=== PATIENT | female | born 1995 | race African-American/Black ===

== ENCOUNTER 2016-09-15 08:17 | Inpatient (IN) | payer BC, OTHER ==
[~2016-09-15] VITALS: Ht 160 cm; Wt 62.5 kg
[2016-09-15] VITALS (18 sets, daily range): BP systolic 112–137; BP diastolic 52–78
[2016-09-15] MEDS ORDERED: PRENATAL TABLE1 EACH PO (08:46)
[2016-09-15 10:22] LABS: EOSINOPHIL (%) 0.7 % (0-5); EOSINOPHIL COUNT 0.1 K/uL (0-0.3); HEMATOCRIT 34.4 % (36.0-46.0); IMMATURE GRANULOCYTE (%) 1.1 % (0.0-0.7); IMMATURE GRANULOCYTE COUNT 0.1 K/uL; INSTRUMENT ABS NEUTROPHIL CT 6.9 K/uL; LYMPHOCYTE COUNT 1.4 K/uL (1.0-2.8); MCH 30.1 PG (29.0-34.0); MCHC 35.8 G/DL (30.0-36.0); MCV 84.3 FL (83-99); MEAN PLAT.VOLUME 11.8 uM^3 (9.5-12.4); MONOCYTE (%) 6.1 % (3-12); MONOCYTE COUNT 0.6 K/uL (0-0.8); NEUTROPHIL (%) 76.8 % (45-76); NEUTROPHIL COUNT 6.9 K/uL (1.8-6.4); PLATELET COUNT 140 K/uL (156-360); RBC DIS.WIDTH-CV 14.6 % (11.8-14.6); RBC DIS.WIDTH-SD 44.5 % (39-53); RED BLOOD COUNT 4.08 M/uL (3.80-5.20)
[2016-09-16 05:15] LABS: EOSINOPHIL (%) 0.4 % (0-5); EOSINOPHIL COUNT 0.1 K/uL (0-0.3); HEMATOCRIT 28.5 % (36.0-46.0); IMMATURE GRANULOCYTE (%) 0.8 % (0.0-0.7); IMMATURE GRANULOCYTE COUNT 0.1 K/uL; INSTRUMENT ABS NEUTROPHIL CT 12.5 K/uL; MCH 30.7 PG (29.0-34.0); MCHC 36.1 G/DL (30.0-36.0); MCV 84.8 FL (83-99); MEAN PLAT.VOLUME 12.1 uM^3 (9.5-12.4); MONOCYTE (%) 8.1 % (3-12); MONOCYTE COUNT 1.3 K/uL (0-0.8); NEUTROPHIL (%) 78.4 % (45-76); NEUTROPHIL COUNT 12.5 K/uL (1.8-6.4); PLATELET COUNT 134 K/uL (156-360); RBC DIS.WIDTH-CV 14.5 % (11.8-14.6); RBC DIS.WIDTH-SD 45.1 % (39-53); RED BLOOD COUNT 3.36 M/uL (3.80-5.20)
[2016-09-16 08:14] VITALS: BP 116/56
[2016-09-16 14:35] VITALS: BP 128/74
[2016-09-16] MEDS ORDERED: IBUPROFEN800 MG PO (15:32)
[2016-09-16 23:40] VITALS: BP 123/65
[2016-09-17 07:14] VITALS: BP 110/53
== END 2016-09-17 14:00 | disposition home or self-care (01) | DRG 775 ==
LOC: LDRP-OP → 2WEST 08:19 → LDRP-OP 12:08 → 2WEST 16:17 → LDRP-OP 10-23 19:49
PROVIDERS: Obstetrics & Gynecology
DX: O71.82 Other specified trauma to perineum and vulva (principal); O99.344 Other mental disorders complicating childbirth; J45.909 Unspecified asthma, uncomplicated; O99.52 Diseases of the respiratory system complicating childbirth; F41.9 Anxiety disorder, unspecified; Z37.0 Single live birth; Z3A.39 39 weeks gestation of pregnancy
CPT/HCPCS: 85025; 86900; 86901; C1726; C1755; J0595; J7120